=== PATIENT | female | born 1995 | race Caucasian/White ===

== ENCOUNTER 2023-05-24 06:30 | Emergency (ER) | payer MEDICAID ==
[~2023-05-24] VITALS: Ht 165.1 cm; Wt 72.6 kg
[2023-05-24 06:47] VITALS: BP 152/98; PULSE 66; RESP 16; TEMP 98.3; O2SAT 98
[2023-05-24 08:23] LABS: BASOPHILS # (AUTO) 0.1 K/uL (0.00-0.22); EOSINOPHILS # (AUTO) 0.1 K/uL (0-0.4); EOSINOPHILS % (AUTO) 2.1 % (0.0-4.0); HEMATOCRIT 37.6 % (36-48); HEMOGLOBIN 12.3 g/dL (12.0-16.0); LYMPHOCYTES # (AUTO) 1.9 K/uL (2.5-16.5); LYMPHOCYTES % (AUTO) 29.4 % (20.5-51.1); MEAN CORPUSCULAR HEMOGLOBIN 27 pg (27-31); MEAN CORPUSCULAR HGB CONC 33 g/dL (33-37); MEAN CORPUSCULAR VOLUME 83.7 fL (80-94); MONOCYTES # (AUTO) 0.6 K/uL (0.8-1.0); NEUTROPHILS # (AUTO) 3.7 K/uL (1.8-7.7); NEUTROPHILS % (AUTO) 57.5 % (42.2-75.2); PLATELET COUNT (AUTO) 262 K/uL (140-450); RED BLOOD CELL COUNT(AUTO) 4.49 MIL/uL (4.20-5.40); RED CELL DISTRIBUTION WIDTH 17.2 % (11.6-13.7); WHITE BLOOD COUNT (AUTO) 6.4 K/uL (4.8-10.8)
[2023-05-24 08:35] LABS: ANION GAP 14.1 (8-16); CALCIUM 8.5 mg/dL (8.5-10.1); CARBON DIOXIDE 24.4 mmol/L (21-32); CREATININE 0.6 mg/dL (0.6-1.3); POTASSIUM 3.5 mmol/L (3.5-5.1)
[2023-05-24 09:59] VITALS: BP 135/80; PULSE 66; RESP 16; TEMP 98.3; O2SAT 98
== END 2023-05-24 09:59 | disposition home or self-care (01) ==
LOC: MED 06:30
DX: Z00.8 Encounter for other general examination (principal); T69.9XXA Effect of reduced temperature, unspecified, initial encounter; Z79.899 Other long term (current) drug therapy
CPT/HCPCS: 36415; 80048; 84703; 85025; 99283; G0482